=== PATIENT | male | born 1970 | race African-American/Black ===

== ENCOUNTER 2022-02-12 10:00 | Emergency (ER) | payer MEDICAID, MEDICARE ==
[~2022-02-12] VITALS: Ht 182.9 cm; Wt 109.0 kg
[2022-02-12] MEDS ORDERED: MORPHINE SULFATE 4 MG/ML CPJ (NOT FOR IM USE) IV STA (10:20)
[2022-02-12] MEDS ORDERED: ONDANSETRON HCL 4MG/2ML INJ IV STA (10:20)
[2022-02-12] MEDS ORDERED: SODIUM CHLORIDE 0.9% 1,000 ML IV ONE (10:30)
[2022-02-12 12:15] LABS: BASOPHILS % 0.4 % (0.0-2.0); EOSINOPHILS % 0.5 % (0.0-5.0); HEMATOCRIT. 49.5 % (42.0-52.0); HEMOGLOBIN. 16.6 g/dL (14.0-18.0); LYMPHOCYTES % 22.8 % (20.0-50.0); MEAN CORPUSCULAR HEMOGLOBIN 31.3 pg (28.0-32.0); MEAN CORPUSCULAR VOLUME 93.7 fL (80.0-94.0); MEAN PLATELET VOLUME 7.4 fl (7.4-10.4); MONOCYTES % 4.3 % (2.0-8.0); PLATELET 348 x1000/uL (130-400); RED BLOOD CELL COUNT 5.29 mill/uL (4.7-6.1); RED CELL DISTRIBUTION WIDTH 14.3 % (11.6-14.6)
[2022-02-12 13:57] LABS: CHLORIDE 104 mEq/L (98-107)
[2022-02-12 16:10] VITALS: BP 112/66
== END 2022-02-12 16:21 | disposition home or self-care (01) ==
LOC: ER 10:00
DX: K80.20 Calculus of gallbladder without cholecystitis without obstruction (principal); Z86.59 Personal history of other mental and behavioral disorders
CPT/HCPCS: 36415; 74176; 76705; 80053; 83690; 85025; 96361; 96374; 96375; 99284; J2270; J2405; J7030